=== PATIENT | male | born 1990 | race Caucasian/White ===

== ENCOUNTER 2017-05-13 05:10 | Emergency (ER) | payer OTHER ==
[2017-05-13] MEDS ORDERED: Ibuprofen 800 MG TAB ONE (06:14)
[2017-05-13] MEDS ORDERED: Bacitracin Zinc 1 Packet ONE (06:44)
--- NOTE | 2017-05-13 08:18 | RAD ---
FOUR VIEWS RIGHT KNEE: INDICATION: Trauma, pain. FINDINGS: No fracture, dislocation, or joint capsular distention. IMPRESSION: No fracture of the right knee. POS: [facility]
== END 2017-05-13 06:50 | disposition home or self-care (01) ==
LOC: NAV ERS 05:10
DX: S81.011A Laceration without foreign body, right knee, initial encounter (principal); S61.412A Laceration without foreign body of left hand, initial encounter; S71.111A Laceration without foreign body, right thigh, initial encounter; V49.50XA Passenger injured in collision with unspecified motor vehicles in traffic accident, initial encounter
CPT/HCPCS: G0390